=== PATIENT | female | born 1980 | race Caucasian/White ===

== ENCOUNTER → 2020-01-11 | Outpatient (CLI) | payer MEDICAID, OTHER ==
--- NOTE | 2020-01-11 13:52 | US ---
EXAMINATION TYPE: US thyroid st tissue head/neck DATE OF EXAM: 01/11/2020 COMPARISON: NONE CLINICAL HISTORY: Thyroglossal Cyst. Edema and lump under chin that has decreased in size since antib iotics Scanned under chin, within area of concern, multiple hypoechoic areas noted with largest = 1.4 x 0.7 x 0.9cm IMPRESSION: Findings which may reflect multiple lymph nodes. I do recommend contrast enhanced CT of the neck for further evaluation.
== END | disposition home or self-care (01) ==
LOC: RADUSWWP 12:45
PROVIDERS: ATTEND Family Medicine
DX: Q89.2 Congenital malformations of other endocrine glands (principal)
CPT/HCPCS: 76536

== ENCOUNTER → 2022-06-25 | Outpatient (CLI) | payer MEDICAID ==
--- NOTE | 2022-06-25 09:28 | MM ---
Reason for Exam: Additional evaluation requested from abnormal screening. Last screening mammogram was performed less than 1 month ago. Patient History: Menarche at age 15. First Full-Term at age 35. Late child-bearing (after 30). 2015, Bilateral Implants. Paternal grandmother had breast cancer at or over age 50. Risk Values: Lyn 5 year model risk: 0.7%. NCI Lifetime model risk: 13.7%. Prior Study Comparison: 06/18/2022 Bilateral MG 3D screen mammo imp/cad., [facility]. Tissue Density: Left: The breast tissue is heterogeneously dense. This may lower the sensitivity of mammography. Findings: Analyzed By CAD. Retropectoral silicone implant demonstrated. There again appears to be nodularity in the superior outer left breast which incompletely disperses with compression. No suspicious calcifications. Overall Assessment: Incomplete: need additional imaging evaluation, BI-RAD 0 Management: Diagnostic Breast Ultrasound of the left breast. A clinical breast exam by your physician is recommended on an annual basis and results should be correlated with mammographic findings. This exam should not preclude additional follow-up of suspicious palpable abnormalities. Results were given to the patient verbally at the time of exam. Electronically signed and approved by: Oliver Wilder D.O.
--- NOTE | 2022-06-25 09:49 | USB ---
Reason for Exam: Additional evaluation requested from abnormal screening. Patient History: Menarche at age 15. First Full-Term at age 35. Late child-bearing (after 30). 2015, Bilateral Implants. Paternal grandmother had breast cancer at or over age 50. Risk Values: Lyn 5 year model risk: 0.7%. NCI Lifetime model risk: 13.7%. Prior Study Comparison: 06/18/2022 Bilateral MG 3D screen mammo imp/cad., [facility]. Findings: The upper outer quadrant of the left breast was scanned. Targeted ultrasound of the left breast at 12-3 o'clock was performed. There are 2 benign appearing lymph nodes with central fat liudmila demonstrated in the left breast at 2 and 3:00 13 cm from the nipple. There is a anechoic cyst with debris demonstrated within the left breast at 3:00 4 cm from the nipple corresponding to mammographic findings. This measures 0.5 x 0.3 x 0.4 cm. There is subtle posterior acoustic enhancement. No internal color flow demonstrated. Overall Assessment: Benign, BI-RAD 2 Management: Screening Mammogram of both breasts at age 42. A clinical breast exam by your physician is recommended on an annual basis and results should be correlated with mammographic findings. This exam should not preclude additional follow-up of suspicious palpable abnormalities. Results were given to the patient verbally at the time of exam. Electronically signed and approved by: Oliver Wilder D.O.
== END | disposition home or self-care (01) ==
LOC: RADMAMWWP 08:39
PROVIDERS: ATTEND Obstetrics & Gynecology
DX: R92.8 Other abnormal and inconclusive findings on diagnostic imaging of breast (principal); Z80.3 Family history of malignant neoplasm of breast
CPT/HCPCS: 77061; 77065

== ENCOUNTER → 2023-06-17 | Outpatient (CLI) | payer MEDICAID ==
[2023-06-17 11:37] LABS: HCT 40.2 % (37.2-46.3); HGB 13.4 g/dL (12.0-15.0); MCH 30.1 pg (27.0-32.0); MCHC 33.3 g/dL (32.0-37.0); MCV 90.3 FL (80.0-97.0); Mean Platelet Volume 10.4 FL (9.5-12.2); NRBC Per 100 WBC 0 X 10*3/uL (0.00-0.01); Platelet Count 256 X 10*3/uL (140-440); RBC 4.45 X 10*6/uL (4.10-5.20); RDW 13.7 % (11.5-14.5); WBC 4.79 X 10*3/uL (4.50-10.00)
[2023-06-17 11:43] LABS: ALT 24 U/L (8-44); AST 20 U/L (13-35); Albumin 4.4 g/dL (3.8-4.9); Albumin/Globulin Ratio 1.91 Ratio (1.60-3.17); Alkaline Phosphatase 46 U/L (41-126); BUN/Creat Ratio 25.11 Ratio (12.00-20.00); Blood Urea Nitrogen 22.6 mg/dL (9.0-27.0); Carbon Dioxide 26.5 mmol/L (21.6-31.8); Chloride 106 mmol/L (96-109); Chol/HDL Ratio 2.34 Ratio; Globulin 2.3 g/dL (1.6-3.3); Glucose 87 mg/dL (70-110); Potassium 4.6 mmol/L (3.5-5.5); Sodium 141 mmol/L (135-145); Total Bilirubin 0.4 mg/dL (0.3-1.2); Total Protein 6.7 g/dL (6.2-8.2); VLDL Calculation 14.84 mg/dL (5.00-40.00)
== END | disposition home or self-care (01) ==
LOC: LABWHC1 07:09
PROVIDERS: ATTEND Obstetrics & Gynecology
DX: Z13.220 Encounter for screening for lipoid disorders (principal); Z13.29 Encounter for screening for other suspected endocrine disorder
CPT/HCPCS: 36415; 80053; 80061; 83036; 84443; 85027

== ENCOUNTER → 2023-06-21 | Outpatient (CLI) | payer MEDICAID ==
--- NOTE | 2023-06-22 17:51 | MM ---
Reason for Exam: Screening (asymptomatic). Last screening mammogram was performed 12 month(s) ago. Patient History: Menarche at age 15. First Full-Term at age 35. Late child-bearing (after 30). 2015, Bilateral Implants. Paternal grandmother had breast cancer at or over age 50. Last menstrual period: 06/07/2023 Risk Values: Lyn 5 year model risk: 0.8%. NCI Lifetime model risk: 13.6%. Prior Study Comparison: 06/18/2022 Bilateral MG 3D screen mammo imp/cad., [facility]. 06/25/2022 Left MG 3D work up w/cad LT, [facility]. Tissue Density: The breasts are heterogeneously dense, which may obscure small masses. Findings: Analyzed By CAD. Retropectoral silicone implants redemonstrated. Unchanged nodular configuration to some of the breast tissue especially on the left. There is no suspicious group of microcalcifications or new suspicious mass in either breast. Overall Assessment: Benign, BI-RAD 2 Management: Screening Mammogram of both breasts in 1 year. . Patient should continue monthly self-breast exams. A clinical breast exam by your physician is recommended on an annual basis. This exam should not preclude additional follow-up of suspicious palpable abnormalities. Note on Lyn scores and lifetime risk: 1. A Lyn score greater than 3% is considered moderate risk. If this is the case, consider specialist referral to assess eligibility for a risk reducing agent. 2. If overall lifetime risk for the development of breast cancer is 20% or higher, the patient may qualify for future screening with alternating mammogram and breast MRI. Electronically signed and approved by: Daisy Land M.D. Radiologist
== END | disposition home or self-care (01) ==
LOC: RADMAMWWP 08:42
PROVIDERS: ATTEND Obstetrics & Gynecology
DX: Z12.31 Encounter for screening mammogram for malignant neoplasm of breast (principal); Z80.3 Family history of malignant neoplasm of breast; Z98.82 Breast implant status
CPT/HCPCS: 77063; 77067